=== PATIENT | male | born 1950 | race Caucasian/White ===

== ENCOUNTER → 2018-04-07 07:02 | Outpatient (CLI) | payer OTHER, SELFPAY ==
[2018-04-07 08:14] LABS: Add Manual Diff / Slide Review NO; Eosinophils Percent Auto 3.8 % (2-4); Hematocrit 45.1 % (41-53); Hemoglobin 15.4 g/dL (13.5-17.5); Lymphocytes Percent Auto 31.8 % (25-40); Mean Corpuscular Hemoglobin 30.5 PG (26-34); Mean Corpuscular Volume 89.7 fL (80-100); Monocytes Percent Auto 6.1 % (3-14); Neutrophils Absolute Auto 2800 /uL (3000-5900); Neutrophils Percent Auto 57.3 % (50-75); Platelet Count 202 X10^3/uL (150-400); Red Blood Cell Count 5.03 X10^6/uL (4.5-5.9); Red Cell Distribution Width 13.7 % (11.6-14.8)
[2018-04-07 09:02] LABS: Alanine Aminotransferase 64 IU/L (21-72); Albumin 3.8 g/dL (3.5-5.0); Albumin Globulin Ratio 1.3 (1.0-2.8); Alkaline Phosphatase 60 U/L (38-126); Aspartate Aminotransferase 50 IU/L (17-59); BUN Creatinine Ratio 15.7 (6-22); Bilirubin Total 1.1 mg/dL (0.2-1.3); Blood Urea Nitrogen 11 mg/dL (9-20); Carbon Dioxide 28 mmol/L (22-32); Chloride 103 mmol/L (98-107); Cholesterol 181 mg/dL (140-199); Estimated Glomerular Filt Rate > 60.0 mL/min (>60); Glucose 101 mg/dL (80-110); HDL Cholesterol 45 mg/dL (40-60); HEMOLYSIS 20 (0-50); LDL Cholesterol Calculated 113 mg/dL (<100); Magnesium 1.9 mg/dL (1.6-2.3); Potassium 4.5 mmol/L (3.4-5.1); Sodium 139 mmol/L (137-145); Total Protein 6.8 g/dL (6.3-8.2); Triglycerides 114 mg/dL (35-150)
[2018-04-07 09:27] LABS: Thyroid Stimulating Hormone 3.78 uIU/mL (0.47-4.68)
[2018-04-07 09:28] LABS: Prostate Specific Antigen Scrn 0.281 ng/mL (0.1-4.0)
== END ==
PROVIDERS: PCP Family Medicine; Visit Provider Family Medicine
DX: I10 Essential (primary) hypertension (principal)
CPT/HCPCS: 36415; 80053; 80061; 83735; 84443; 85025; G0103

== ENCOUNTER → 2020-06-28 12:38 | Outpatient (CLI) | payer MEDICARE, SELFPAY ==
[2020-06-28 13:12] LABS: Add Manual Diff / Slide Review NO; Basophils Absolute Auto 100 /uL (0-100); Basophils Percent Auto 0.9 % (0-2); Eosinophils Absolute Auto 200 /uL (0-450); Hematocrit 46.6 % (41-53); Hemoglobin 15.7 g/dL (13.5-17.5); Lymphocytes Absolute Auto 1700 /uL (1100-4500); Lymphocytes Percent Auto 29.5 % (25-40); Mean Corpuscular HGB Conc 33.6 % (30-36); Mean Corpuscular Hemoglobin 30.2 PG (26-34); Mean Corpuscular Volume 89.9 fL (80-100); Monocytes Absolute Auto 300 /uL (0-900); Monocytes Percent Auto 5.1 % (3-14); Neutrophils Absolute Auto 3600 /uL (1500-7000); Neutrophils Percent Auto 61.5 % (50-75); Platelet Count 210 X10^3/uL (150-400); Red Blood Cell Count 5.19 X10^6/uL (4.5-5.9); Red Cell Distribution Width 13.2 % (11.6-14.8); White Blood Cell Count 5.8 X10^3/uL (4.5-11.0)
[2020-06-28 13:13] LABS: HEMOLYSIS < 15 (0-50)
[2020-06-28 13:22] LABS: Alanine Aminotransferase 48 IU/L (<50); Albumin 4.1 g/dL (3.5-5.0); Albumin Globulin Ratio 1.4 (1.0-2.8); Alkaline Phosphatase 65 U/L (38-126); Aspartate Aminotransferase 48 IU/L (17-59); BUN Creatinine Ratio 12.5 (6-22); Bilirubin Total 0.9 mg/dL (0.2-1.3); Blood Urea Nitrogen 9 mg/dL (9-20); Calcium 9.3 mg/dL (8.4-10.2); Carbon Dioxide 30 mmol/L (22-32); Chloride 103 mmol/L (98-107); Cholesterol 167 mg/dL (140-199); Estimated Glomerular Filt Rate > 60.0 mL/min (>60); Glucose 106 mg/dL (80-110); HDL Cholesterol 39 mg/dL (40-60); LDL Cholesterol Calculated 107 mg/dL (<100); Potassium 4.7 mmol/L (3.4-5.1); Sodium 139 mmol/L (137-145); Total Protein 7.1 g/dL (6.3-8.2); Triglycerides 107 mg/dL (35-150)
== END ==
PROVIDERS: Family Provider Family Medicine; PCP Family Medicine; Referring Provider Family Medicine; Visit Provider Family Medicine
DX: I10 Essential (primary) hypertension (principal)
CPT/HCPCS: 36415; 80053; 80061; 84153; 85025

== ENCOUNTER → 2022-04-19 07:42 | Outpatient (CLI) | payer OTHER, SELFPAY ==
[2022-04-19 09:00] LABS: Add Manual Diff / Slide Review NO; Basophils Absolute Auto 0 /uL (0-100); Basophils Percent Auto 0.6 % (0-2); Eosinophils Absolute Auto 200 /uL (0-450); Eosinophils Percent Auto 3.2 % (2-4); Hemoglobin 14.5 g/dL (13.5-17.5); Lymphocytes Absolute Auto 1500 /uL (1100-4500); Lymphocytes Percent Auto 26.8 % (25-40); Mean Corpuscular HGB Conc 34.6 % (30-36); Mean Corpuscular Hemoglobin 30.8 PG (26-34); Mean Corpuscular Volume 89.3 fL (80-100); Monocytes Absolute Auto 300 /uL (0-900); Monocytes Percent Auto 5.9 % (3-14); Neutrophils Absolute Auto 3700 /uL (1500-7000); Neutrophils Percent Auto 63.5 % (50-75); Platelet Count 199 X10^3/uL (150-400); Red Cell Distribution Width 13.4 % (11.6-14.8); White Blood Cell Count 5.8 X10^3/uL (4.5-11.0)
[2022-04-19 09:41] LABS: Alanine Aminotransferase 44 IU/L (<50); Albumin 3.7 g/dL (3.5-5.0); Albumin Globulin Ratio 1.3 (1.0-2.8); Alkaline Phosphatase 70 U/L (38-126); Aspartate Aminotransferase 49 IU/L (17-59); BUN Creatinine Ratio 11.7 (6-22); Bilirubin Total 1.1 mg/dL (0.2-1.3); Blood Urea Nitrogen 9 mg/dL (9-20); Calcium 8.6 mg/dL (8.4-10.2); Carbon Dioxide 30 mmol/L (22-32); Chloride 102 mmol/L (98-107); Cholesterol 157 mg/dL (140-199); Estimated Glomerular Filt Rate > 60 mL/min (>60); Globulin 2.8 g/dL (1.7-4.1); Glucose 119 mg/dL (80-110); HDL Cholesterol 37 mg/dL (40-60); HEMOLYSIS < 15 (0-50); LDL Cholesterol Calculated 104 mg/dL (<100); Potassium 4.2 mmol/L (3.4-5.1); Sodium 136 mmol/L (137-145); Total Protein 6.5 g/dL (6.3-8.2); Triglycerides 80 mg/dL (35-150)
[2022-04-19 09:44] LABS: Hemoglobin A1C% w Est Avg Glu 5.6 % (4.0-6.0)
[2022-04-19 10:11] LABS: Prostate Specific Antigen Scrn 0.495 ng/mL (0.1-4.0)
== END ==
PROVIDERS: Family Provider Family Medicine; PCP Family Medicine; Referring Provider Family Medicine; Visit Provider Family Medicine
DX: E78.2 Mixed hyperlipidemia (principal); I10 Essential (primary) hypertension; Z12.5 Encounter for screening for malignant neoplasm of prostate
CPT/HCPCS: 36415; 80053; 80061; 83036; 85025; G0103

== ENCOUNTER 2022-06-04 10:28 | Emergency (ER) | payer OTHER, SELFPAY ==
[2022-06-04 10:44] VITALS: BP 213/98; PULSE 115; RESP 18; TEMP 36.9; O2SAT 97; BMI 38.3
--- NOTE | 2022-06-04 11:00 | DI.RAD.S_ITS ---
PROCEDURE: XR ABDOMEN 1V INDICATIONS: abd pain TECHNIQUE: One view of the abdomen acquired. COMPARISON: None. FINDINGS: Surgical changes and devices: None. Bowel: Scattered small bowel and colonic gas. No dilated loops of bowel seen. Soft tissues: No suspicious abdominal calcifications. Visualized solid organ contours appear normal in size. Bones: No suspicious bony lesions. Moderate bilateral hip DJD. IMPRESSION: Suspect nonobstructive bowel gas pattern. Consider further evaluation with CT abdomen pelvis with IV contrast. Dictated by: Domo Porras M.D. on 06/04/2022 at 11:32 Approved by: Domo Porras M.D. on 06/04/2022 at 11:33
--- NOTE | 2022-06-04 11:04 | ED.ABDPAIN ---
HPI - Abdominal Pain General Chief Complaint: Abdominal Pain Stated Complaint: Abd pain over weekend Time Seen by Provider: 06/04/22 10:49 Source: patient Mode of arrival: Ambulatory History of Present Illness HPI narrative: Mr. All beck is a 71-year-old man with abdominal pain. He says that on he noticed a little bit of vague discomfort in the midepigastrium. It radiated down to his umbilicus and reminded him of previous times when he had umbilical hernia pain. He says he has ?white coat hypertension? but otherwise he is in pretty good health. He had an extensive abdominal surgery many years ago for appendicitis but has had no other abdominal surgeries. For some time he noticed an umbilical hernia but that has never been treated. The pain over the past few days has been above the umbilicus toward the xiphoid process and he notes some bulging and sense of muscular swelling in this area as well. He has felt some significant gas pressure in pain and he has been taking Maalox and prune juice and has been having normal bowel movements. He never had any nausea or vomiting nor has he ever had a fever or back pain. No urinary symptoms, no chest pain or shortness of breath or cough. Related Data Home Medications Medication Instructions Recorded Confirmed mangostine juice PO 04/03/18 04/27/22 multivitamin PO 04/03/18 04/27/22 Previous Rx's Medication Instructions Recorded clonidine HCl 0.3 mg tablet 0.3 mg PO BID #180 tabs 04/27/22 losartan 50 mg-hydrochlorothiazide 1 tab PO DAILY #90 tabs 04/27/22 12.5 mg tablet Allergies Allergy/AdvReac Type Severity Reaction Status Date / Time Sulfa (Sulfonamide Allergy Intermediate Rash Verified 06/04/22 10:44 Antibiotics) Penicillins Allergy Unknown Verified 06/04/22 10:44 Review of Systems Review of Systems Narrative: Complete review of systems is negative other than as noted above. Patient History Medical History (Updated 06/04/22 @ 13:06 by Adin Hall MD) Pre-diabetes Preventative health care Surgical History (Updated 07/24/20 @ 19:20 by Jeanette Holloway) Anesthesia History of appendectomy (~1977) History of repair of laceration (~1973) Family History (Updated 07/24/20 @ 19:23 by Jeanette Holloway) Father Stroke Brother Hypertension Hyperlipidemia Social History Smoking Status: Never smoker Smoking Status: Never smoker Substance Use Type: does not use Exam Narrative Exam Narrative: GENERAL: Alert, cooperative and in no distress. HEAD: Atraumatic. Normocephalic. EYES: Sclera are clear without icterus. Extraocular movements are full. ENT: No rhinorrhea. Oropharynx is moist. Mouth exam is benign. NECK: Supple. Full range of motion. CARDIOVASCULAR: Normal rate and rhythm without murmur gallop or rub. RESPIRATORY: Clear to auscultation. Breath sounds equal bilaterally. No wheezes, rales, or rhonchi. GASTROINTESTINAL: Obese abdomen, distended, normal bowel sounds, minimal tenderness at the umbilicus and on the midline up toward the xiphoid process, no guarding, no mass no tenderness elsewhere. EXTREMITIES: Trace edema, full range of motion. No obvious trauma. BACK: Normal inspection, no CVA tenderness. NEURO: Nonfocal examination, normal speech, normal gait. SKIN: No rash or erythema of visible areas PSYCH: Normally oriented. Normal range of affect. Appropriate behavior Initial Vital Signs Initial Vital Signs: Vital Signs Temperature 98.4 F 06/04/22 10:44 Pulse Rate 115 H 06/04/22 10:44 Respiratory Rate 18 06/04/22 10:44 Blood Pressure 213/98 H 06/04/22 10:44 Pulse Oximetry 97 06/04/22 10:44 Oxygen Delivery Method 06/04/22 10:44 Course Orders Ordered: ED Orders 06/04/22 11:00 XR abdomen 1V Stat 06/04/22 11:15 CBC Auto Diff [Complete Blood Count AUTO DIFF] Stat CMP [Comprehensive Metabolic Panel] Stat Lipase Stat 06/04/22 12:07 US abdomen limited Stat Vital Signs Vital signs: Vital Signs - 8 hr 06/04/22 10:44 06/04/22 11:30 06/04/22 11:31 Temperature 98.4 F Pulse Rate 115 H 95 H 96 H Respiratory Rate 18 Blood Pressure 213/98 H Pulse Oximetry 97 96 95 Oxygen Delivery Method Room Air 06/04/22 11:31 06/04/22 12:00 Temperature Pulse Rate 89 Respiratory Rate Blood Pressure 176/89 H Pulse Oximetry 94 Oxygen Delivery Method MDM - Abdominal Pain Lab Data Result diagrams: 06/04/22 11:15 08/29/22 11:15 Labs: Lab Results 06/04/22 06/04/22 Range/Units 11:15 11:15 WBC 7.1 (4.5-11.0) X10^3/uL RBC 4.49 L (4.5-5.9) X10^6/uL Hgb 13.8 (13.5-17.5) g/dL Hct 39.8 L (41-53) % MCV 88.7 (80-100) fL MCH 30.7 (26-34) PG MCHC 34.6 (30-36) % RDW 12.9 (11.6-14.8) % Plt Count 234 (150-400) X10^3/uL Neut % (Auto) 77.5 H (50-75) % Lymph % (Auto) 13.4 L (25-40) % [place] % (Auto) 7.9 (3-14) % Eos % (Auto) 0.8 L (2-4) % Baso % (Auto) 0.4 (0-2) % Neut # (Auto) 5500 (7477-0285) /uL Lymph # (Auto) 900 L (1935-5467) /uL [place] # (Auto) 600 (0-900) /uL Eos # (Auto) 100 (0-450) /uL Baso # (Auto) 0 (0-100) /uL Sodium 134 L (137-145) mmol/L Potassium 3.6 (3.4-5.1) mmol/L Chloride 100 (98-107) mmol/L Carbon Dioxide 25 (22-32) mmol/L BUN 11 (9-20) mg/dL Creatinine 0.66 (0.66-1.25) mg/dL Estimated GFR > 60 (>60) mL/min BUN/Creatinine Ratio 16.7 (6-22) Glucose 131 H (80-110) mg/dL Calcium 8.1 L (8.4-10.2) mg/dL Total Bilirubin 1.6 H (0.2-1.3) mg/dL AST 51 (17-59) IU/L ALT 48 (<50) IU/L Alkaline Phosphatase 80 (38-126) U/L Total Protein 6.9 (6.3-8.2) g/dL Albumin 3.5 (3.5-5.0) g/dL Globulin 3.4 (1.7-4.1) g/dL Albumin/Globulin Ratio 1.0 (1.0-2.8) Lipase 46 (23-300) U/L Imaging Data Abdominal x-ray: Radiologist's Impression: IMPRESSION:? Suspect nonobstructive bowel gas pattern. ? Consider further evaluation with CT abdomen pelvis with IV contrast. ? ? Dictated by: Domo Porras M.D. on 06/04/2022 at 11:32 ? ? Approved by: Domo Porras M.D. on 06/04/2022 at 11:33 ? US - abdomen: Radiologist's Impression: IMPRESSION:? 1. No cholelithiasis or evidence of acute cholecystitis. 2. No biliary ductal dilation demonstrated. 3. The liver is echogenic, a nonspecific finding commonly seen in the setting of steatosis.? ? ? Dictated by: Mir Turner M.D. on 06/04/2022 at 12:39 ? ? Approved by: Mir Turner M.D. on 06/04/2022 at 12:42 ? MDM Narrative Medical decision making narrative: This well-appearing gentleman has a benign abdominal examination but minimal elevation in bilirubin and relatively normal ultrasound other than fatty liver. I think outpatient follow-up is appropriate at this point. Given the history and exam I think the abdominal pain he is experiencing is probably related to a ventral wall hernia. No incarceration is suspected at this time. Discharge Plan Departure Patient Disposition: Home Clinical Impression: Abdominal pain, Elevated bilirubin, Fatty liver Activity Restrictions/Additional Instructions: No immediately dangerous condition is identified today. I think the abdominal pain you are experiencing is probably related to a abdominal hernia. Most commonly these are not immediately dangerous and often do not require any treatment. If you notice a bulging that will not go back in with gentle touching especially if it is associated with repeated vomiting or severe pain, return to the emergency department for further evaluation. Otherwise, follow-up with your doctor in the coming days to discuss ongoing treatment for this. Regarding the fatty liver identified on the ultrasound, discuss this with your doctor today to decide whether or not further investigation might be warranted. Your bilirubin was elevated today which can be associated with liver disease. Ultrasound showed no gallbladder abnormality. Follow-up with your doctor also discussed the bilirubin abnormality to see if further investigation may be warranted. No specific medications are recommended at this time. I recommend a mild diet you can advance as tolerated. Of course return to the emergency department for new or worsening symptoms especially pain out of control, jaundice or fever. Prescriptions: No Action clonidine HCl 0.3 mg tablet 0.3 mg PO BID Qty: 180 3RF losartan-hydrochlorothiazide 50-12.5 mg tablet 1 tab PO DAILY Qty: 90 3RF mangostine juice PO multivitamin PO Referrals: Adis Lees, [Primary Care Provider] -
[2022-06-04 11:30] VITALS: PULSE 95; O2SAT 96
[2022-06-04 11:31] VITALS: BP 176/89; PULSE 96; O2SAT 95
[2022-06-04 11:33] LABS: Add Manual Diff / Slide Review NO; Basophils Absolute Auto 0 /uL (0-100); Basophils Percent Auto 0.4 % (0-2); Eosinophils Absolute Auto 100 /uL (0-450); Eosinophils Percent Auto 0.8 % (2-4); Hematocrit 39.8 % (41-53); Hemoglobin 13.8 g/dL (13.5-17.5); Lymphocytes Absolute Auto 900 /uL (1100-4500); Lymphocytes Percent Auto 13.4 % (25-40); Mean Corpuscular HGB Conc 34.6 % (30-36); Mean Corpuscular Hemoglobin 30.7 PG (26-34); Mean Corpuscular Volume 88.7 fL (80-100); Monocytes Absolute Auto 600 /uL (0-900); Monocytes Percent Auto 7.9 % (3-14); Neutrophils Absolute Auto 5500 /uL (1500-7000); Neutrophils Percent Auto 77.5 % (50-75); Platelet Count 234 X10^3/uL (150-400); Red Blood Cell Count 4.49 X10^6/uL (4.5-5.9); Red Cell Distribution Width 12.9 % (11.6-14.8); White Blood Cell Count 7.1 X10^3/uL (4.5-11.0)
[2022-06-04 11:40] LABS: Alanine Aminotransferase 48 IU/L (<50); Albumin 3.5 g/dL (3.5-5.0); Alkaline Phosphatase 80 U/L (38-126); Aspartate Aminotransferase 51 IU/L (17-59); BUN Creatinine Ratio 16.7 (6-22); Bilirubin Total 1.6 mg/dL (0.2-1.3); Blood Urea Nitrogen 11 mg/dL (9-20); Calcium 8.1 mg/dL (8.4-10.2); Carbon Dioxide 25 mmol/L (22-32); Chloride 100 mmol/L (98-107); Estimated Glomerular Filt Rate > 60 mL/min (>60); Globulin 3.4 g/dL (1.7-4.1); Glucose 131 mg/dL (80-110); HEMOLYSIS < 15 (0-50); Lipase 46 U/L (23-300); Potassium 3.6 mmol/L (3.4-5.1); Sodium 134 mmol/L (137-145); Total Protein 6.9 g/dL (6.3-8.2)
[2022-06-04 12:00] VITALS: PULSE 89; O2SAT 94
--- NOTE | 2022-06-04 12:07 | DI.US.S_ITS ---
PROCEDURE: US ABDOMEN LIMITED INDICATIONS: Abd pain, elevated Bili. GB? TECHNIQUE: Real-time focused scanning was performed of the abdomen, with image documentation. COMPARISON: None. FINDINGS: Technically challenging exam due to patient body habitus. The liver is echogenic and difficult to penetrate sonographically. Approximate liver length of 19.6 centimeters. No gallstones, gallbladder wall thickening, or sonographic Mendoza sign. No biliary ductal dilation demonstrated. Extrahepatic bile duct measures 5 millimeters. Visualized pancreas is unremarkable sonographically. Incidental note of a simple appearing 6.1 centimeter right upper kidney cortical cyst without suspicious features identified. IMPRESSION: 1. No cholelithiasis or evidence of acute cholecystitis. 2. No biliary ductal dilation demonstrated. 3. The liver is echogenic, a nonspecific finding commonly seen in the setting of steatosis. Dictated by: Mir Turner M.D. on 06/04/2022 at 12:39 Approved by: Mir Turner M.D. on 06/04/2022 at 12:42
[2022-06-04 13:13] VITALS: BP 202/97; PULSE 106; RESP 18; TEMP 36.4; O2SAT 98
== END 2022-06-04 13:14 | disposition home or self-care (01) ==
PROVIDERS: Emergency Provider Family Medicine Addiction Medicine; Family Provider Family Medicine; PCP Family Medicine
DX: R10.13 Epigastric pain (principal); K76.0 Fatty (change of) liver, not elsewhere classified
CPT/HCPCS: 36415; 74018; 76705; 80053; 83690; 85025; 99284

== ENCOUNTER 2022-08-14 09:06 | Emergency (ER) | payer OTHER, SELFPAY ==
[2022-08-14] VITALS (7 sets, daily range): BP systolic 169–210; BP diastolic 82–98; PULSE 85–106; RESP 20–27; TEMP 36.5; O2SAT 97–100; BMI 41.1
--- NOTE | 2022-08-14 09:28 | DI.RAD.S_ITS ---
PROCEDURE: XR CHEST 1V INDICATIONS: eval for pulmonary edema TECHNIQUE: One view of the chest was acquired. COMPARISON: None. FINDINGS: Surgical changes and devices: None. Lungs and pleura: Lungs are clear. No pleural effusions or pneumothorax. Mediastinum: Mediastinal contours appear normal. Heart size is normal. Bones and chest wall: No suspicious bony lesions. Overlying soft tissues appear unremarkable. IMPRESSION: No acute cardiopulmonary process demonstrated radiographically. Dictated by: Main Rush M.D. on 08/14/2022 at 9:52 Approved by: Main Rush M.D. on 08/14/2022 at 9:52
--- NOTE | 2022-08-14 09:29 | ED.EXTPRO ---
HPI - Extremity Problem General Chief complaint: Extremity Problem,Nontraumatic Stated complaint: possible allergic reaction Time Seen by Provider: 08/14/22 09:20 Source: patient Mode of arrival: Family Vehicle History of Present Illness HPI Narrative: 72-year-old male who is here for evaluation of what he initially thought was an allergic reaction. He received the Moderna COVID booster a couple weeks ago. Since then he has had off and on issues with swelling to both of his lower extremities. He is never had anything like this in the past. No chest pain. No shortness of breath. He states that he ?treats ?his symptoms at home with ice and Epson salts and elevation. He states that it does seem to help but then the symptoms come back again. No pain in his lower extremities. No abdominal distention. No fevers. Is not on a diuretic. Does have a history of high blood pressure. Is on medications for this. Related Data Home Medications Medication Instructions Recorded Confirmed mangostine juice PO 04/03/18 06/29/22 multivitamin PO 04/03/18 06/29/22 Previous Rx's Medication Instructions Recorded clonidine HCl 0.3 mg tablet 0.3 mg PO BID #180 tabs 04/27/22 furosemide 20 mg tablet (Lasix) 20 mg PO DAILY 7 days #7 tabs 08/14/22 Allergies Allergy/AdvReac Type Severity Reaction Status Date / Time Sulfa (Sulfonamide Allergy Intermediate Rash Verified 08/14/22 09:23 Antibiotics) Penicillins Allergy Unknown Verified 08/14/22 09:23 Review of Systems Review of Systems ROS Unobtainable: All systems reviewed & are unremarkable except as noted in HPI and below Patient History Medical History Pre-diabetes Preventative health care Ventral hernia Surgical History Anesthesia History of appendectomy (~1977) History of repair of laceration (~1973) Family History Father Stroke Brother Hypertension Hyperlipidemia Social History Smoking Status: Never smoker Smoking Status: Never smoker alcohol intake frequency: holidays/special occasions only Substance Use Type: does not use Exam Initial Vital Signs Initial Vital Signs: Vital Signs Temperature 97.7 F 08/14/22 09:16 Pulse Rate 101 H 08/14/22 09:16 Respiratory Rate 20 08/14/22 09:16 Blood Pressure 210/98 H 08/14/22 09:16 Pulse Oximetry 100 08/14/22 09:16 Oxygen Delivery Method 08/14/22 09:16 Const General: cooperative and comfortable HENMT Head: normal to inspection and normocephalic Resp Effort & Inspection: normal respiratory effort Auscultation: clear to auscultation bilaterally Cardio Rate: regular rate Rhythm: regular rhythm GI Inspection: normal to inspection and non-distended Palpation: soft and No firm Skin General: no rashes or lesions noted Neuro General: patient alert, patient awake, patient oriented x3 and moves all extremities Extrem General: normal to inspection and capillary refill normal Other: Equal swelling bilateral lower extremities from toes to mid thighs. Psych Appearance: grossly normal and well kempt Course Orders Ordered: ED Orders 08/14/22 09:28 XR chest 1V Stat EKG-12 Lead Stat 08/14/22 09:34 Complete Blood Count AUTO DIFF Stat Comprehensive Metabolic Panel Stat Lipase Stat Magnesium Stat NT-proBNP (BNP-Adult 18+) Stat Troponin & CK Cardiac Panel Stat Vital Signs Vital signs: Vital Signs - 8 hr 08/14/22 09:16 08/14/22 09:17 08/14/22 09:18 Temperature 97.7 F Pulse Rate 101 H 106 H Respiratory Rate 20 Blood Pressure 210/98 H 201/98 H Pulse Oximetry 100 99 Oxygen Delivery Method Room Air 08/14/22 09:26 08/14/22 09:26 08/14/22 09:30 Temperature Pulse Rate 99 H Respiratory Rate 23 Blood Pressure 180/83 H 169/86 H Pulse Oximetry 99 Oxygen Delivery Method 08/14/22 09:30 08/14/22 09:45 08/14/22 10:00 Temperature Pulse Rate 95 H 90 Respiratory Rate 21 27 H Blood Pressure 170/82 H Pulse Oximetry 97 98 Oxygen Delivery Method 08/14/22 10:00 Temperature Pulse Rate 85 Respiratory Rate 21 Blood Pressure Pulse Oximetry 98 Oxygen Delivery Method MDM - Extremity (Nontraumatic) Lab Data Result diagrams: 08/14/22 09:34 08/14/22 09:34 Labs: Lab Results 08/14/22 08/14/22 Range/Units 09:34 09:34 WBC 5.5 (4.5-11.0) X10^3/uL RBC 4.05 L (4.5-5.9) X10^6/uL Hgb 12.5 L (13.5-17.5) g/dL Hct 37.0 L (41-53) % MCV 91.5 (80-100) fL MCH 30.8 (26-34) PG MCHC 33.7 (30-36) % RDW 14.9 H (11.6-14.8) % Plt Count 276 (150-400) X10^3/uL Neut % (Auto) 62.8 (50-75) % Lymph % (Auto) 24.9 L (25-40) % [place] % (Auto) 7.4 (3-14) % Eos % (Auto) 3.8 (2-4) % Baso % (Auto) 1.1 (0-2) % Neut # (Auto) 3500 (0483-1097) /uL Lymph # (Auto) 1400 (6339-3132) /uL [place] # (Auto) 400 (0-900) /uL Eos # (Auto) 200 (0-450) /uL Baso # (Auto) 100 (0-100) /uL Sodium 138 (137-145) mmol/L Potassium 3.4 (3.4-5.1) mmol/L Chloride 103 (98-107) mmol/L Carbon Dioxide 28 (22-32) mmol/L BUN 11 (9-20) mg/dL Creatinine 0.63 L (0.66-1.25) mg/dL Estimated GFR > 60 (>60) mL/min BUN/Creatinine Ratio 17.5 (6-22) Glucose 108 (80-110) mg/dL Calcium 8.2 L (8.4-10.2) mg/dL Magnesium 1.8 (1.6-2.3) mg/dL Total Bilirubin 0.5 (0.2-1.3) mg/dL AST 63 H (17-59) IU/L ALT 52 H (<50) IU/L Alkaline Phosphatase 153 H (38-126) U/L Total Creatine Kinase 114 (55-170) U/L CK-MB (CK-2) 3.60 H (<2.37) ng/mL CK-MB (CK-2) Rel Index 3.2 (1.5-5.0) % Troponin I 0.016 (0.01-0.034) ng/mL NT-Pro-B Natriuret Pep 290 H (<125) pg/mL Total Protein 7.0 (6.3-8.2) g/dL Albumin 3.5 (3.5-5.0) g/dL Globulin 3.5 (1.7-4.1) g/dL Albumin/Globulin Ratio 1.0 (1.0-2.8) Lipase 126 (23-300) U/L Imaging Data Chest x-ray: Radiologist's Impression: [address] [address] XRay Report Signed Patient: Vin Oneal MR#: [id number] : 1950 Acct:[id number] Age/Sex: 72 / M Date of Service: 08/14/22 Loc: ED Accession Number: [id number] ?? Procedure: XR chest 1V Ordering Provider: Casey Wyatt D.O. PROCEDURE:? XR CHEST 1V ? INDICATIONS:? eval for pulmonary edema ? TECHNIQUE:? One view of the chest was acquired.? ? COMPARISON:? None. ? FINDINGS:? ? Surgical changes and devices:? None.? ? Lungs and pleura:? Lungs are clear.? No pleural effusions or pneumothorax.? ? Mediastinum:? Mediastinal contours appear normal.? Heart size is normal.? ? Bones and chest wall:? No suspicious bony lesions.? Overlying soft tissues appear unremarkable.? ? IMPRESSION:? No acute cardiopulmonary process demonstrated radiographically. ? ? Dictated by: Main Rush M.D. on 08/14/2022 at 9:52 ? ? Approved by: Main Rush M.D. on 08/14/2022 at 9:52? ECG Data Interpretation: Sinus rhythm Ventricular rate 87 Normal axis Normal QRS Normal QTC Nonspecific ST T wave changes MDM Narrative Medical decision making narrative: No respiratory distress. Patient has no signs of heart failure. He does have bilateral lower extremity swelling. No signs of cellulitis. Also feel this is less likely blood clot. Plan abuse start him on diuretics for the next couple days. His kidney functions unremarkable. He will contact his primary doctor for follow-up. He expressed understanding and agreement. Discharge Plan Departure Patient Disposition: Home Clinical Impression: Peripheral edema Instructions: DI for Peripheral Edema -- Bilateral Activity Restrictions/Additional Instructions: Continue to take all of your medications as directed and for the next week we will put you on a diuretic. Contact your primary doctor for a follow-up. Return to the emergency department for any new or worsening symptoms. Prescriptions: New furosemide [Lasix] 20 mg tablet 20 mg PO DAILY 7 Days Qty: 7 0RF No Action clonidine HCl 0.3 mg tablet 0.3 mg PO BID Qty: 180 3RF mangostine juice PO multivitamin PO Referrals: Adis Lees DO [Primary Care Provider] -
[2022-08-14 09:41] LABS: Add Manual Diff / Slide Review NO; Basophils Absolute Auto 100 /uL (0-100); Basophils Percent Auto 1.1 % (0-2); Eosinophils Absolute Auto 200 /uL (0-450); Eosinophils Percent Auto 3.8 % (2-4); Hemoglobin 12.5 g/dL (13.5-17.5); Lymphocytes Absolute Auto 1400 /uL (1100-4500); Lymphocytes Percent Auto 24.9 % (25-40); Mean Corpuscular HGB Conc 33.7 % (30-36); Mean Corpuscular Hemoglobin 30.8 PG (26-34); Mean Corpuscular Volume 91.5 fL (80-100); Monocytes Absolute Auto 400 /uL (0-900); Monocytes Percent Auto 7.4 % (3-14); Neutrophils Absolute Auto 3500 /uL (1500-7000); Neutrophils Percent Auto 62.8 % (50-75); Platelet Count 276 X10^3/uL (150-400); Red Blood Cell Count 4.05 X10^6/uL (4.5-5.9); Red Cell Distribution Width 14.9 % (11.6-14.8); White Blood Cell Count 5.5 X10^3/uL (4.5-11.0)
[2022-08-14 10:00] LABS: Alanine Aminotransferase 52 IU/L (<50); Albumin 3.5 g/dL (3.5-5.0); Alkaline Phosphatase 153 U/L (38-126); Aspartate Aminotransferase 63 IU/L (17-59); BUN Creatinine Ratio 17.5 (6-22); Bilirubin Total 0.5 mg/dL (0.2-1.3); Blood Urea Nitrogen 11 mg/dL (9-20); Calcium 8.2 mg/dL (8.4-10.2); Carbon Dioxide 28 mmol/L (22-32); Chloride 103 mmol/L (98-107); Creatine Kinase 114 U/L (55-170); Estimated Glomerular Filt Rate > 60 mL/min (>60); Globulin 3.5 g/dL (1.7-4.1); Glucose 108 mg/dL (80-110); HEMOLYSIS < 15 (0-50); Lipase 126 U/L (23-300); Magnesium 1.8 mg/dL (1.6-2.3); Potassium 3.4 mmol/L (3.4-5.1); Sodium 138 mmol/L (137-145)
[2022-08-14 10:11] LABS: NT-proBNP (BNP-Adult 18+) 290 pg/mL (<125); Troponin I 0.016 ng/mL (0.01-0.034)
[2022-08-14 10:15] LABS: CKMB % Relative Index 3.2 % (1.5-5.0)
== END 2022-08-14 10:46 | disposition home or self-care (01) ==
PROVIDERS: Emergency Provider Emergency Medicine; Family Provider Family Medicine; PCP Family Medicine
DX: R60.9 Edema, unspecified (principal); R07.9 Chest pain, unspecified
CPT/HCPCS: 36415; 71045; 80053; 82550; 82553; 83690; 83735; 83880; 84484; 85025; 93005; 93010; 99283; 99284

== ENCOUNTER → 2022-12-19 10:08 | Outpatient (CLI) | payer OTHER, SELFPAY ==
[2022-12-19 10:54] LABS: Add Manual Diff / Slide Review NO; Basophils Absolute Auto 100 /uL (0-100); Basophils Percent Auto 1.1 % (0-2); Eosinophils Absolute Auto 100 /uL (0-450); Eosinophils Percent Auto 2.8 % (2-4); Hematocrit 43.4 % (41-53); Hemoglobin 14.6 g/dL (13.5-17.5); Lymphocytes Absolute Auto 1600 /uL (1100-4500); Lymphocytes Percent Auto 34.1 % (25-40); Mean Corpuscular HGB Conc 33.6 % (30-36); Mean Corpuscular Hemoglobin 29.3 PG (26-34); Mean Corpuscular Volume 87.2 fL (80-100); Monocytes Absolute Auto 300 /uL (0-900); Monocytes Percent Auto 6.1 % (3-14); Neutrophils Absolute Auto 2700 /uL (1500-7000); Neutrophils Percent Auto 55.9 % (50-75); Platelet Count 191 X10^3/uL (150-400); Red Blood Cell Count 4.98 X10^6/uL (4.5-5.9); Red Cell Distribution Width 14.9 % (11.6-14.8); White Blood Cell Count 4.8 X10^3/uL (4.5-11.0)
[2022-12-19 11:05] LABS: Hemoglobin A1C% w Est Avg Glu 5.7 % (4.0-6.0)
[2022-12-19 11:23] LABS: Alanine Aminotransferase 49 IU/L (<50); Albumin 3.9 g/dL (3.5-5.0); Albumin Globulin Ratio 1.2 (1.0-2.8); Alkaline Phosphatase 84 U/L (38-126); Aspartate Aminotransferase 53 IU/L (17-59); BUN Creatinine Ratio 16.4 (6-22); Bilirubin Total 1.2 mg/dL (0.2-1.3); Blood Urea Nitrogen 11 mg/dL (9-20); Calcium 8.5 mg/dL (8.4-10.2); Carbon Dioxide 28 mmol/L (22-32); Chloride 104 mmol/L (98-107); Cholesterol 172 mg/dL (140-199); Estimated Glomerular Filt Rate > 60 mL/min (>60); Globulin 3.3 g/dL (1.7-4.1); Glucose 97 mg/dL (80-110); HDL Cholesterol 44 mg/dL (40-60); HEMOLYSIS < 15 (0-50); LDL Cholesterol Calculated 111 mg/dL (<100); Sodium 139 mmol/L (137-145); Total Protein 7.2 g/dL (6.3-8.2); Triglycerides 84 mg/dL (35-150)
== END ==
PROVIDERS: Family Provider Family Medicine; PCP Family Medicine; Referring Provider Family Medicine; Visit Provider Family Medicine
DX: E78.2 Mixed hyperlipidemia (principal); R73.03 Prediabetes; I10 Essential (primary) hypertension
CPT/HCPCS: 36415; 80053; 80061; 83036; 85025

== ENCOUNTER → 2024-01-14 10:25 | Outpatient (CLI) | payer OTHER, SELFPAY ==
[2024-01-14 10:55] LABS: Add Manual Diff / Slide Review NO; Basophils Absolute Auto 0 /uL (0-100); Basophils Percent Auto 0.8 % (0-2); Eosinophils Absolute Auto 100 /uL (0-450); Eosinophils Percent Auto 2.5 % (2-4); Hematocrit 44.4 % (41-53); Hemoglobin 15.2 g/dL (13.5-17.5); Lymphocytes Absolute Auto 1700 /uL (1100-4500); Lymphocytes Percent Auto 32.2 % (25-40); Mean Corpuscular HGB Conc 34.2 % (30-36); Mean Corpuscular Hemoglobin 30.8 PG (26-34); Mean Corpuscular Volume 90.2 fL (80-100); Monocytes Absolute Auto 200 /uL (0-900); Monocytes Percent Auto 4.1 % (3-14); Neutrophils Absolute Auto 3200 /uL (1500-7000); Neutrophils Percent Auto 60.4 % (50-75); Platelet Count 185 X10^3/uL (150-400); Red Blood Cell Count 4.93 X10^6/uL (4.5-5.9); Red Cell Distribution Width 13.4 % (11.6-14.8); White Blood Cell Count 5.3 X10^3/uL (4.5-11.0)
[2024-01-14 17:10] LABS: Alanine Aminotransferase 56 IU/L (<50); Albumin Globulin Ratio 1.2 (1.0-2.8); Alkaline Phosphatase 53 U/L (38-126); Aspartate Aminotransferase 59 IU/L (17-59); BUN Creatinine Ratio 17.6 (6-22); Bilirubin Total 0.8 mg/dL (0.2-1.3); Blood Urea Nitrogen 12 mg/dL (9-20); Calcium 9.2 mg/dL (8.4-10.2); Carbon Dioxide 25 mmol/L (22-32); Chloride 109 mmol/L (98-107); Cholesterol 167 mg/dL (140-199); Estimated Glomerular Filt Rate > 60 mL/min (>60); Globulin 3.4 g/dL (1.7-4.1); Glucose 105 mg/dL (80-110); HDL Cholesterol 35 mg/dL (40-60); LDL Cholesterol Calculated 112 mg/dL (<100); Potassium 4.8 mmol/L (3.4-5.1); Sodium 139 mmol/L (137-145); Total Protein 7.4 g/dL (6.3-8.2); Triglycerides 100 mg/dL (35-150)
[2024-01-14 18:38] LABS: HEMOLYSIS 82 (0-50)
[2024-01-14 19:31] LABS: Hemoglobin A1C% w Est Avg Glu 5.3 % (4.0-6.0)
[2024-01-16 11:26] LABS: Prostate Specific Antigen Scrn 0.567 ng/mL (0.1-4.0)
== END ==
PROVIDERS: Family Provider Family Medicine; PCP Family Medicine; Referring Provider Family Medicine; Visit Provider Family Medicine
DX: R73.03 Prediabetes (principal); I10 Essential (primary) hypertension; Z12.5 Encounter for screening for malignant neoplasm of prostate; E78.2 Mixed hyperlipidemia; R01.1 Cardiac murmur, unspecified
CPT/HCPCS: 36415; 80053; 80061; 83036; 85025; G0103